=== PATIENT | female | born 1950 | race Caucasian/White ===

== ENCOUNTER 2020-11-13 13:13 | Emergency (ER) | payer OTHER, SELFPAY ==
[2020-11-13 13:22] VITALS: BP 147/67; PULSE 102; RESP 19; TEMP 36.9; O2SAT 99; BMI 31.7
[2020-11-13 13:46] LABS: Appearance Urine UA CLEAR; Bilirubin Urine UA NEGATIVE (NEGATIVE); Color Urine UA YELLOW; Glucose Urine UA NEGATIVE (Negative); Ketones Urine UA NEGATIVE (NEGATIVE); Leukocyte Esterase Urine UA NEGATIVE (NEGATIVE); Nitrite Urine UA NEGATIVE (Negative); Occult Blood Urine UA NEGATIVE (Negative); Protein Urine UA NEGATIVE (Negative); Urobilinogen Urine UA 0.2 E.U./dL (0.2)
[2020-11-13 14:10] LABS: Bacteria Urine Occasional (0-1); Culture Indicated Urine Cult Not Indicated; RBC Urine 0-1/HPF (0-5/HPF); Squamous Epithelial Cell Urine 0-1 /HPF (0-5/HPF); WBC Urine 0-1/HPF (0-5/HPF); pH Urine UA 6.5 (4.5-8.0)
--- NOTE | 2020-11-13 14:33 | DI.CT.S_ITS ---
PROCEDURE: CT ABDOMEN PELVIS W CON INDICATIONS: pelvic pain c/f interstitial cystitis TECHNIQUE: After the administration of IV contrast, axial sections were acquired from the lung bases to the pubic symphysis. Coronal and sagittal reformats were performed. For radiation dose reduction, the following was used: automated exposure control, adjustment of mA and/or kV according to patient size. COMPARISON: CT, KIDNEY/ URETER/BLADDER, 12/03/2015, 4:36. FINDINGS: Image quality: Excellent. Lung bases: Unremarkable. Heart: Coronary artery calcifications. Moderate-sized hiatal hernia. ABDOMEN: Liver: No focal lesion. Gallbladder: Unremarkable. Biliary ducts: Unremarkable. Pancreas: Unremarkable. Spleen: Unremarkable. Adrenal Glands: Unremarkable. Kidneys and Ureters: Unremarkable. Stomach and Bowel: Colonic diverticulosis. Inflammatory change surrounding the sigmoid colon. No abscess. No small bowel obstruction. Normal appendix. Peritoneum: No abnormal intraperitoneal fluid. No free air. Ventral Wall: Tiny fat containing periumbilical hernia. Abdominal Nodes: No retroperitoneal or mesenteric adenopathy by size criteria. Vessels: Mild aortic ectasia. Moderate plaque. PELVIS: Pelvic Organs: Anteverted uterus. Bladder: Grossly unremarkable. Pelvic Nodes: No enlarged lymph nodes. Miscellaneous: No inguinal hernias are seen. Bones: Bilateral total hip arthroplasties. Beam hardening artifact. IMPRESSION: 1. Sigmoid colon diverticulitis. No abscess. 2. Moderate-sized hiatal hernia. Comment: Findings were discussed with Ynes russo in the emergency department at the time of dictation. Dictated by: Robbin Prado M.D. on 11/13/2020 at 15:26 Approved by: Robbin Prado M.D. on 11/13/2020 at 15:34
[2020-11-13 14:55] VITALS: BP 141/64; PULSE 86; RESP 16; O2SAT 99
[2020-11-13] MEDS: MORPHINE 4 MG/ML INJ IV (14:56)
[2020-11-13 15:22] LABS: Add Manual Diff / Slide Review NO; Basophils Absolute Auto 100 /uL (0-100); Basophils Percent Auto 0.7 % (0-2); Eosinophils Absolute Auto 100 /uL (0-450); Eosinophils Percent Auto 1.3 % (2-4); Hematocrit 42.5 % (36-46); Lymphocytes Absolute Auto 1400 /uL (1100-4500); Lymphocytes Percent Auto 14.8 % (25-40); Mean Corpuscular Hemoglobin 33.2 PG (26-34); Mean Corpuscular Volume 100.4 fL (80-100); Monocytes Absolute Auto 800 /uL (0-900); Monocytes Percent Auto 8.1 % (3-14); Neutrophils Absolute Auto 7100 /uL (1500-7000); Neutrophils Percent Auto 75.1 % (50-75); Platelet Count 216 X10^3/uL (150-400); Red Blood Cell Count 4.23 X10^6/uL (4.0-5.2); Red Cell Distribution Width 12.8 % (11.6-14.8); White Blood Cell Count 9.4 X10^3/uL (4.5-11.0)
[2020-11-13 15:36] LABS: Alanine Aminotransferase 22 IU/L (<35); Albumin 4.3 g/dL (3.5-5.0); Albumin Globulin Ratio 1.4 (1.0-2.8); Alkaline Phosphatase 63 U/L (38-126); Aspartate Aminotransferase 26 IU/L (14-36); Bilirubin Total 0.5 mg/dL (0.2-1.3); Blood Urea Nitrogen 15 mg/dL (7-17); Calcium 9.8 mg/dL (8.4-10.2); Carbon Dioxide 30 mmol/L (22-32); Chloride 102 mmol/L (98-107); Estimated Glomerular Filt Rate 50.4 mL/min (>60); Glucose 100 mg/dL (80-110); HEMOLYSIS < 15 (0-50); Lipase 100 U/L (23-300); Potassium 4.2 mmol/L (3.4-5.1); Sodium 139 mmol/L (137-145); Total Protein 7.3 g/dL (6.3-8.2)
--- NOTE | 2020-11-13 15:44 | ED.FEMALEGU ---
HPI - Female Genitourinary <TAIWO Wong - Last Filed: 11/13/20 20:02> General Chief complaint: Urogenital-Female Stated complaint: Poss Bladder infection- sent by [facility] Time Seen by Provider: 11/13/20 14:01 Source: patient Mode of arrival: Family Vehicle Limitations: no limitations History of Present Illness HPI Narrative: 70-year-old female presents to the ED for pelvic pain she believes is similar but worse than her last UTI. She was treated for a UTI in September and treated in October as well she received both Bactrim and doxycycline. She is complaining of sharp pelvic pain that radiates to both sides, and some low back pain, no dysuria, no frequency, but is painful and sharp. She reports that she does not want to sit down. She denies any nausea, any vomiting, fever, or bladder spasms. She reports she still has her reproductive organs, denies any change to her vaginal discharge, denies any blood in her urine or stool, denies any diarrhea, and no chest pain or shortness of breath. She endorses having a history of pyelonephritis and frequent UTIs although she has not been worked up for this as a complicated UTI. Related Data Home Medications Medication Instructions Recorded Confirmed aspirin 81 mg tablet,delayed 81 mg PO QDAY #30 tab 09/28/15 release ibuprofen 600 mg tablet 600 mg PO Q6HP PRN #0 tab 09/28/15 trazodone 50 mg tablet 25 mg PO HS #0 tab 09/28/15 triamterene 75 1 tab PO QDAY #0 tab 09/28/15 mg-hydrochlorothiazide 50 mg tablet (Maxzide) valacyclovir 500 mg tablet 500 mg PO QDAY #0 tab 09/28/15 Previous Rx's Medication Instructions Recorded hydrocodone 5 mg-acetaminophen 325 1 tab PO Q6HP PRN #10 tab 12/03/15 mg tablet ([place]) sulfamethoxazole 800 1 tab PO BID 7 Days #0 tab 12/03/15 mg-trimethoprim 160 mg tablet diazepam 5 mg tablet (Valium) 5 mg PO Q8HP PRN #10 tab 12/04/15 ondansetron 4 mg disintegrating 4 mg SUBLINGUAL Q6HP PRN #10 odt 12/04/15 tablet (Zofran ODT) oxycodone-acetaminophen 5 mg-325 1 - 2 tab PO Q6HP PRN #10 tab 12/03/16 mg tablet (Percocet) ciprofloxacin HCl 500 mg tablet 500 mg PO BID 10 Days #20 tab 11/13/20 metronidazole 500 mg tablet 500 mg PO TID 10 Days #30 tab 11/13/20 (Flagyl) oxycodone-acetaminophen 5 mg-325 1 tab PO TID PRN #10 tab 11/13/20 mg tablet (Percocet) Allergies Allergy/AdvReac Type Severity Reaction Status Date / Time No Known Drug Allergies Allergy Verified 11/13/20 13:22 Review of Systems <TAIWO Wong - Last Filed: 11/13/20 20:02> Review of Systems Narrative: General: denies fever, chills Head/Neck: denies headache, neck pain Eyes: denies visual changes, eye pain Cardio: denies chest pain, palpitations Respiratory: denies shortness of breath, cough GI: denies abdominal pain, nausea, vomiting, or diarrhea : denies dysuria, hematuria, complains of low pelvic pain MSK: denies joint pain, muscle weakness Skin: denies rash, itching Neuro: denies numbness, tingling Patient History <TAIWO Wong - Last Filed: 11/13/20 20:02> Surgical History History of repair of hiatal hernia Status post rotator cuff repair Family History Brother Heart disease Hypertension High cholesterol Heart attack Brother Heart disease Father Cancer Mother Heart disease Sister Diabetes mellitus Heart disease Hypertension High cholesterol Stroke Sister Diabetes mellitus Hypertension alcohol intake frequency: a few times a week Alcohol type: wine Substance Use Type: does not use Exam <TAIWO Wong - Last Filed: 11/13/20 20:02> Narrative Exam Narrative: Independently reviewed vitals signs and nursing notes. General: Awake, alert, nontoxic, no cardiorespiratory distress Head/Neck: Atraumatic, neck full range of motion Eyes: EOMI, conjunctiva normal Nose: nares patent, no rhinorrhea Mouth/Throat: moist mucus membranes, posterior pharynx normal, no oral lesions Cardio: Regular rate and rhythm, no peripheral edema Respiratory: respirations unlabored without wheezing, stridor, or rales. No retractions. GI: Abdomen soft, nontender to palpation, no masses, no rigidity. No CVA tenderness, lower left quadrant tenderness to palpation MSK: Moves all extremities, neurovascularly intact Skin: Normal capillary refill, no rash Neuro: Normal speech and cognition, normal gait Initial Vital Signs Initial Vital Signs: Vital Signs Temperature 98.4 F 11/13/20 13:22 Pulse Rate 102 H 11/13/20 13:22 Respiratory Rate 19 11/13/20 13:22 Blood Pressure 147/67 H 11/13/20 13:22 Pulse Oximetry 99 11/13/20 13:22 <Eusebio Brantley DO - Last Filed: 11/16/20 07:07> Initial Vital Signs Initial Vital Signs: Vital Signs Temperature 98.4 F 11/13/20 13:22 Pulse Rate 102 H 11/13/20 13:22 Respiratory Rate 11/13/20 13:22 Blood Pressure 147/67 H 11/13/20 13:22 Pulse Oximetry 99 11/13/20 13:22 Course <ANGELITO WongP - Last Filed: 11/13/20 20:02> Orders Ordered: Discontinued Medications Lorazepam (Lorazepam 2 Mg/Ml Inj) 1 mg IV NOW ONE Stop: 11/13/20 15:43 Last Admin: 11/13/20 15:47 Dose: 1 mg Documented by: PILLO Morphine Sulfate (Morphine 4 Mg/Ml Inj) 4 mg IV NOW ONE Stop: 11/13/20 14:33 Last Admin: 11/13/20 14:56 Dose: 4 mg Documented by: KODYOR Vital Signs Vital signs: Vital Signs - 8 hr 11/13/20 13:22 11/13/20 14:55 11/13/20 16:15 Temperature 98.4 F Pulse Rate 102 H 86 77 Respiratory Rate 19 16 16 Blood Pressure 147/67 H 141/64 H 185/77 H Pulse Oximetry 99 99 99 <Eusebio Brantley DO - Last Filed: 11/16/20 07:07> Orders Ordered: Discontinued Medications Lorazepam (Lorazepam 2 Mg/Ml Inj) 1 mg IV NOW ONE Stop: 11/13/20 15:43 Last Admin: 11/13/20 15:47 Dose: 1 mg Documented by: PILLO Morphine Sulfate (Morphine 4 Mg/Ml Inj) 4 mg IV NOW ONE Stop: 11/13/20 14:33 Last Admin: 11/13/20 14:56 Dose: 4 mg Documented by: PILLO Vital Signs Vital signs: Vital Signs - 8 hr 11/13/20 13:22 11/13/20 14:55 11/13/20 16:15 Temperature 98.4 F Pulse Rate 102 H 86 77 Respiratory Rate 19 16 16 Blood Pressure 147/67 H 141/64 H 185/77 H Pulse Oximetry 99 99 99 MDM - Female Genitourinary <TAIWO Wong - Last Filed: 11/13/20 20:02> Lab Data Result diagrams: 11/13/20 15:03 11/13/20 15:03 Labs: Lab Results 11/13/20 11/13/20 11/13/20 Range/Units 13:34 15:03 15:03 WBC 9.4 (4.5-11.0) X10^3/uL RBC 4.23 (4.0-5.2) X10^6/uL Hgb 14.0 (12.0-16.0) g/dL Hct 42.5 (36-46) % MCV 100.4 H (80-100) fL MCH 33.2 (26-34) PG MCHC 33.0 (30-36) % RDW 12.8 (11.6-14.8) % Plt Count 216 (150-400) X10^3/uL Neut % (Auto) 75.1 H (50-75) % Lymph % (Auto) 14.8 L (25-40) % [place] % (Auto) 8.1 (3-14) % Eos % (Auto) 1.3 L (2-4) % Baso % (Auto) 0.7 (0-2) % Neut # (Auto) 7100 H (1826-2668) /uL Lymph # (Auto) 1400 (3182-6319) /uL [place] # (Auto) 800 (0-900) /uL Eos # (Auto) 100 (0-450) /uL Baso # (Auto) 100 (0-100) /uL Sodium 139 (137-145) mmol/L Potassium 4.2 (3.4-5.1) mmol/L Chloride 102 (98-107) mmol/L Carbon Dioxide 30 (22-32) mmol/L BUN 15 (7-17) mg/dL Creatinine 1.07 H (0.52-1.04) mg/dL Estimated GFR 50.4 L (>60) mL/min BUN/Creatinine Ratio 14.0 (6-22) Glucose 100 (80-110) mg/dL Calcium 9.8 (8.4-10.2) mg/dL Total Bilirubin 0.5 (0.2-1.3) mg/dL AST 26 (14-36) IU/L ALT 22 (<35) IU/L Alkaline Phosphatase 63 (38-126) U/L Total Protein 7.3 (6.3-8.2) g/dL Albumin 4.3 (3.5-5.0) g/dL Globulin 3.0 (1.7-4.1) g/dL Albumin/Globulin Ratio 1.4 (1.0-2.8) Lipase 100 (23-300) U/L Urine Color Yellow Urine Appearance Clear Urine pH 6.5 (4.5-8.0) Ur Specific [place] 1.020 (1.000-1.035) Urine Protein Negative (Negative) Urine Glucose (UA) Negative (Negative) g/dL Urine Ketones Negative (NEGATIVE) Urine Occult Blood Negative (Negative) Urine Nitrate Negative (Negative) Urine Bilirubin Negative (NEGATIVE) Urine Urobilinogen 0.2 (0.2) E.U./dL Ur Leukocyte Esterase Negative (NEGATIVE) Urine RBC 0-1/hpf (0-5/HPF) Urine WBC 0-1/hpf (0-5/HPF) Ur Squamous Epith Cells 0-1 /hpf (0-5/HPF) Urine Bacteria Occasional (0-1) (None) Ur Culture Indicated? Cult not indicated Urine Dip Bedside Urine Glucose Negative Bedside Urine Bilirubin - Negative Bedside Urine Ketone - Negative Urine Specific [place] 1.020 Bedside Urine Occult Blood - Negative Bedside Urine pH 6.0 Bedside Urine Protein - Negative Bedside Urine Urobilinogen - Negative Bedside Urine Nitrite - Negative Bedside Urine Leukocytes - Negative Esterase Imaging Data CT scan - abdomen/pelvis: Radiologist's Impression: PROCEDURE:? CT ABDOMEN PELVIS W CON ? INDICATIONS:? pelvic pain c/f interstitial cystitis ? TECHNIQUE:? After the administration of IV contrast, axial sections were acquired from the lung bases to the pubic symphysis.? Coronal and sagittal reformats were performed.? For radiation dose reduction, the following was used:? automated exposure control, adjustment of mA and/or kV according to patient size. ? COMPARISON:? CT, KIDNEY/ URETER/BLADDER, 12/03/2015, 4:36. ? FINDINGS:? Image quality:? Excellent.? ? Lung bases:? Unremarkable.? ? Heart:? Coronary artery calcifications. Moderate-sized hiatal hernia. ? ? ABDOMEN: Liver:? No focal lesion. Gallbladder:? Unremarkable.? ? Biliary ducts:? Unremarkable.? ? Pancreas:? Unremarkable.? ? Spleen:? Unremarkable.? ? Adrenal Glands:? Unremarkable.? ? Kidneys and Ureters:? Unremarkable.? ? ? Stomach and Bowel:? Colonic diverticulosis.? Inflammatory change surrounding the sigmoid colon.? No abscess.? No small bowel obstruction.? Normal appendix.? Peritoneum:? No abnormal intraperitoneal fluid.? No free air.? ? Ventral Wall: ? Tiny fat containing periumbilical hernia.? Abdominal Nodes:? No retroperitoneal or mesenteric adenopathy by size criteria.? Vessels:? Mild aortic ectasia.? Moderate plaque.? ? PELVIS: Pelvic Organs:? Anteverted uterus.? ? Bladder:? Grossly unremarkable.? ? Pelvic Nodes: No enlarged lymph nodes.? Miscellaneous: No inguinal hernias are seen. ? ? ? Bones:? Bilateral total hip arthroplasties.? Beam hardening artifact. ? ? IMPRESSION:? 1. Sigmoid colon diverticulitis.? No abscess. ? 2. Moderate-sized hiatal hernia. ? ? Comment: Findings were discussed with Ynes russo in the emergency department at the time of dictation. ? ? Dictated by: Robbin Prado M.D. on 11/13/2020 at 15:26 ? ? Approved by: Robbin Prado M.D. on 11/13/2020 at 15:34 ? MDM Narrative Medical decision making narrative: 70-year-old female presents to the ED for low pelvic pain with concern for UTI. UA was negative for infection, exam was unremarkable, no CVA tenderness, lab work revealed a creatinine of 1.07, no leukocytosis, patient is afebrile. Patient reports significant fear of CT scanner, she was medicated with Ativan prior to and tolerated exam without difficulty. Her CT abdomen and pelvis was positive for uncomplicated sigmoid colon diverticulitis without abscess, and a known moderate size hiatal hernia. Results were discussed with patient and recommendations on diet were given. She was instructed to follow-up with her PCP, take the antibiotics as prescribed, and return to the emergency department for any new or worsening symptoms. Patient is appropriate and amenable to discharge home. Vital signs are stable on repeat examination is unremarkable. Patient has been informed of results. Patient has been given strict return to ER precautions for any new or worsening symptoms. Patient understands to follow up closely with outpatient providers as instructed. Patient understands plan and agrees to discharge home. All questions and concerns answered at this time. <Eusebio Brantley, - Last Filed: 11/16/20 07:07> Lab Data Labs: Lab Results 11/13/20 11/13/20 11/13/20 Range/Units 13:34 15:03 15:03 WBC 9.4 (4.5-11.0) X10^3/uL RBC 4.23 (4.0-5.2) X10^6/uL Hgb 14.0 (12.0-16.0) g/dL Hct 42.5 (36-46) % MCV 100.4 H (80-100) fL MCH 33.2 (26-34) PG MCHC 33.0 (30-36) % RDW 12.8 (11.6-14.8) % Plt Count 216 (150-400) X10^3/uL Neut % (Auto) 75.1 H (50-75) % Lymph % (Auto) 14.8 L (25-40) % [place] % (Auto) 8.1 (3-14) % Eos % (Auto) 1.3 L (2-4) % Baso % (Auto) 0.7 (0-2) % Neut # (Auto) 7100 H (5874-4406) /uL Lymph # (Auto) 1400 (0937-2653) /uL [place] # (Auto) 800 (0-900) /uL Eos # (Auto) 100 (0-450) /uL Baso # (Auto) 100 (0-100) /uL Sodium 139 (137-145) mmol/L Potassium 4.2 (3.4-5.1) mmol/L Chloride 102 (98-107) mmol/L Carbon Dioxide 30 (22-32) mmol/L BUN 15 (7-17) mg/dL Creatinine 1.07 H (0.52-1.04) mg/dL Estimated GFR 50.4 L (>60) mL/min BUN/Creatinine Ratio 14.0 (6-22) Glucose 100 (80-110) mg/dL Calcium 9.8 (8.4-10.2) mg/dL Total Bilirubin 0.5 (0.2-1.3) mg/dL AST 26 (14-36) IU/L ALT 22 (<35) IU/L Alkaline Phosphatase 63 (38-126) U/L Total Protein 7.3 (6.3-8.2) g/dL Albumin 4.3 (3.5-5.0) g/dL Globulin 3.0 (1.7-4.1) g/dL Albumin/Globulin Ratio 1.4 (1.0-2.8) Lipase 100 (23-300) U/L Urine Color Yellow Urine Appearance Clear Urine pH 6.5 (4.5-8.0) Ur Specific [place] 1.020 (1.000-1.035) Urine Protein Negative (Negative) Urine Glucose (UA) Negative (Negative) g/dL Urine Ketones Negative (NEGATIVE) Urine Occult Blood Negative (Negative) Urine Nitrate Negative (Negative) Urine Bilirubin Negative (NEGATIVE) Urine Urobilinogen 0.2 (0.2) E.U./dL Ur Leukocyte Esterase Negative (NEGATIVE) Urine RBC 0-1/hpf (0-5/HPF) Urine WBC 0-1/hpf (0-5/HPF) Ur Squamous Epith Cells 0-1 /hpf (0-5/HPF) Urine Bacteria Occasional (0-1) (None) Ur Culture Indicated? Cult not indicated Urine Dip Bedside Urine Glucose Negative Bedside Urine Bilirubin - Negative Bedside Urine Ketone - Negative Urine Specific [place] 1.020 Bedside Urine Occult Blood - Negative Bedside Urine pH 6.0 Bedside Urine Protein - Negative Bedside Urine Urobilinogen - Negative Bedside Urine Nitrite - Negative Bedside Urine Leukocytes - Negative Esterase Discharge Plan Departure Patient Disposition: Home Clinical Impression: Diverticulitis of sigmoid colon Instructions: DI for Colitis Activity Restrictions/Additional Instructions: *You have been diagnosed with sigmoid colon diverticulitis, moderately severe. Please finish 10 day course of antibiotics, they might give you some nausea or diarrhea, sorry. Take it easy for the next few days, try to stay hydrated, and it was tolerable. *What to do: *Please continue to take your regular medications as directed. [x ] New medication prescriptions sent to your pharmacy: [[facility] in [place] ] [ ] New medication written as a paper prescription [ ] No new medications given *Please follow up with your primary care provider in 2-3 days, call for an appointment. Let them know you were seen in the Emergency Department and that we ask that you be seen in follow up. We will electronically transmit a record of today's note if your PCP is in our system *If you do not have a primary care provider please contact the [facility] Resource line at [phone]. They will ask some questions about your medical history and help get you set up with a doctor in the community. *Return to Emergency Department if you should have any new, worsening or concerning symptoms, such as [fever greater than 101F, chills, worsening pain, persistent vomiting or other bothersome symptoms] Diverticulitis Diet A diverticulitis diet is something your doctor might recommend as part of a short-term treatment plan for acute diverticulitis. Diverticula are small, bulging pouches that can form in the lining of the digestive system. They're found most often in the lower part of the large intestine (colon). This condition is called diverticulosis. In some cases, one or more of the pouches become inflamed or infected. This is known as diverticulitis. Mild cases of diverticulitis are usually treated with antibiotics and a low-fiber diet, or treatment may start with a period of rest where you eat nothing by mouth, then start with clear liquids and then move to a low-fiber diet until your condition improves. More-severe cases typically require hospitalization. Purpose Nutrition therapy for diverticulitis is a temporary measure to give your digestive system a chance to rest. Eat small amounts until bleeding and diarrhea subside. Diet details Your diet starts with only clear liquids for a few days. Examples of items allowed on a clear liquid diet include: Broth Fruit juices without pulp, such as apple juice Ice chips Ice pops without bits of fruit or fruit pulp Gelatin Water Tea or coffee without cream As you start feeling better, your doctor will recommend that you slowly add low-fiber foods. Examples of low-fiber foods include: Canned or cooked fruits without skin or seeds Canned or cooked vegetables such as green beans, carrots and potatoes (without the skin) Eggs, fish and poultry Refined white bread Fruit and vegetable juice with no pulp Low-fiber cereals Milk, yogurt and cheese White rice, pasta and noodles Results You should feel better within two or three days of starting the diet and antibiotics. If you haven't started feeling better by then, call your doctor. Also contact your doctor if: You develop a fever Your abdominal pain is worsening You're unable to keep clear liquids down These may indicate a complication that requires hospitalization. Risks Nutrition therapy for diverticulitis has few risks. However, continuing a clear liquid diet for more than a few days can lead to weakness and other complications, since it doesn't provide enough of the nutrients your body needs. For this reason, your doctor will want you to transition back to a normal diet that includes foods with fiber as soon as you can tolerate it. Prescriptions: New ciprofloxacin HCl 500 mg tablet 500 mg PO BID 10 Days Qty: 20 RF: 0 metronidazole [Flagyl] 500 mg tablet 500 mg PO TID 10 Days Qty: 30 RF: 0 oxycodone-acetaminophen [Percocet] 5-325 mg tablet 1 tab PO TID PRN (Reason: pain) Qty: 10 RF: 0 No Action trazodone 50 MG tablet 25 mg PO HS Qty: 0 RF: 0 valacyclovir 500 MG tablet 500 mg PO QDAY Qty: 0 RF: 0 aspirin 81 MG tablet,delayed release (DR/EC) 81 mg PO QDAY Qty: 30 RF: 0 ibuprofen 600 MG tablet 600 mg PO Q6HP PRNQty: 0 RF: 0 triamterene-hydrochlorothiazid [Maxzide] 75 MG/50 MG tablet 1 tab PO QDAY Qty: 0 RF: 0 hydrocodone-acetaminophen [[place]] 5 MG/325 MG tablet 1 tab PO Q6HP PRNQty: 10 RF: 0 sulfamethoxazole-trimethoprim 800 MG/160 MG tablet 1 tab PO BID 7 Days Qty: 0 RF: 0 oxycodone-acetaminophen [Percocet] 5 MG/325 MG tablet 1 - 2 tab PO Q6HP PRNQty: 10 RF: 0 ondansetron [Zofran ODT] 4 MG tablet,disintegrating 4 mg Sublingual Q6HP PRNQty: 10 RF: 0 diazepam [Valium] 5 MG tablet 5 mg PO Q8HP PRNQty: 10 RF: 0 Referrals: Aimee Obrien PA-C [Primary Care Provider] - <Eusebio Brantley DO - Last Filed: 11/16/20 07:07> [facility] Dr Brantley Co-Sign Statement: I was available for consultation during this patient's emergency department visit. This chart is signed by myself for administrative purposes only. I did not have direct contact with this patient during this visit. They were seen independently by the APC.
[2020-11-13] MEDS: LORazepam 2 MG/ML INJ 1 MG IV (15:47)
[2020-11-13 16:15] VITALS: BP 185/77; PULSE 77; RESP 16; O2SAT 99
== END 2020-11-13 16:58 | disposition home or self-care (01) ==
PROVIDERS: Emergency Medicine; Emergency Provider Nurse Practitioner Critical Care Medicine; PCP Physician Assistant Medical
DX: K57.32 Diverticulitis of large intestine without perforation or abscess without bleeding (principal); M54.5 Low back pain
CPT/HCPCS: 36415; 74177; 80053; 81001; 81003; 83690; 85025; 96374; 96375; 99284; J2060; J2270; Q9967

== ENCOUNTER → 2023-01-17 09:24 | Outpatient (CLI) | payer OTHER, SELFPAY ==
--- NOTE | 2023-01-17 | DI.CT.S_ITS ---
PROCEDURE: CT SINUS SCREEN WO CON INDICATIONS: CHRONIC PANSINUSITIS/FACIAL PAIN/RHINORRHEA TECHNIQUE: Noncontrast 3.0 mm axial images acquired from the frontal sinuses to the mid-sella, with coronal and sagittal reformats. For radiation dose reduction, the following was used: automated exposure control, adjustment of mA and/or kV according to patient size. COMPARISON: None. FINDINGS: Image quality: Excellent. Sinuses: Sinuses are clear. For left frontal sinuses aplastic. No fluid levels. Ostiomeatal Complexes: Ostiomeatal complexes are patent. No Andrew cells. Miscellaneous: Visualized intra-orbital contents are normal. No sneha bullosa or paradoxical turbinate curvature. Nasal septal deviation is present. There is notable atrophy of the middle turbinates compared to the inferior turbinates. IMPRESSION: Sinuses are clear. Mild septal deviation. Dictated by: Janet Fuller M.D. on 01/17/2023 at 12:04 Approved by: Janet Fuller M.D. on 01/17/2023 at 12:06
== END ==
PROVIDERS: PCP Physician Assistant Medical; Referring Provider Otolaryngology; Visit Provider Otolaryngology
DX: J32.4 Chronic pansinusitis (principal); R51.9 Headache, unspecified; J34.89 Other specified disorders of nose and nasal sinuses; J34.2 Deviated nasal septum; F40.240 Claustrophobia
CPT/HCPCS: 70486